=== PATIENT | female | born 2000 | race Two or more races ===

== ENCOUNTER 2025-01-24 15:16 | Observation (INO) | payer MEDICAID, SELFPAY ==
[2025-01-24] VITALS (34 sets, daily range): BP systolic 91–136; BP diastolic 51–59; PULSE 76–105; RESP 20–97; TEMP 36.6; O2SAT 92–100; BMI 25.2
--- NOTE | 2025-01-24 15:54 | XR_ITS ---
Examination: Complete OB ultrasound greater than 14 weeks Date and time of exam: January 24, 2025 at 1614 hrs. Indications: labor with abdominal and pelvic pain today Findings: Viable intrauterine single fetus with single amniotic sac presentation cephalic spine maternal right Cardiac motion 144 BPM Placenta maternal left. 2 Umbilical cord insertion 3 vessel seen Amniotic fluid index 9.4 cm Cervix 4.4 cm Ovaries obscured by bowel gas. Composite estimated gestational age based on BPD, head circumference, abdominal circumference, femur length is 32 weeks 0 days Estimated weight 1831 g. Survey of intracranial anatomy, spinal anatomy, abdominal anatomy, four-chamber heart performed with no abnormalities identified. Impression: Viable intrauterine gestation cephalic presentation.
[2025-01-24] MEDS: RINGERS LACTATED 1000 ML 1,000 ML 999 ML IV (16:10)
[2025-01-24 16:25] LABS: Basophils % (Auto) 0 % (0-2.5); Eosinophils % (Auto) 0 % (0-10); Hematocrit 27.9 % (36.0-46.0); Hemoglobin 9.5 g/dL (12.0-16.0); Immature Granulocytes % (Auto) 0 % (0-0); Immature Granulocytes Auto 0.03 Thou/mm3 (0.00-0.00); Lymphocytes # (Auto) 1.5 Thou/mm3 (1.0-4.8); Lymphocytes % (Auto) 22 % (10-50); Mean Corpuscular HGB Conc 34.1 g/dl (31.0-37.0); Mean Corpuscular Hemoglobin 28.5 pg (25.0-35.0); Mean Corpuscular Volume 84 fL (80-100); Monocytes # (Auto) 0.4 Thou/mm3 (0.0-0.8); Monocytes % (Auto) 6 % (0-12); Neutrophils # (Auto) 4.9 Thou/mm3 (1.8-7.7); Neutrophils % (Auto) 71 % (37-80); Nucleated Red Blood Cell % 0 /100 WBC (0); Platelet Count 214 Thou/mm3 (140-440); RDW Standard Deviation 41.8 fL (36.4-46.3); Red Blood Count 3.33 Miln/mm3 (4.00-5.20); White Blood Count 6.9 Thou/mm3 (3.6-11.0)
[2025-01-24 16:47] LABS: Alanine Aminotransferase 13 U/L (10-49); Albumin, Serum 3.7 gm/dL (3.5-5.0); Albumin/Globulin Ratio 1.5 (1.2-2.2); Alkaline Phosphatase 96 U/L (46-116); Anion Gap 7 (7-16); Aspartate Amino Transferase 15 U/L (0-34); BUN/Creatinine Ratio 12 Ratio (12-20); Bilirubin,Total 0.4 mg/dL (0.3-1.2); Blood Urea Nitrogen 7 mg/dL (9-23); Calcium 8.3 mg/dL (8.3-10.6); Calcium (Corrected) 8.5 mg/dL (8.5-10.1); Carbon Dioxide 23.7 mMol/L (20.0-31.0); Chloride 108 mMol/L (98-107); Creatinine (Component) 0.6 mg/dL (0.6-1.3); Estimated Creatinine Clearance 115.7 mL/min (>60); Globulin 2.5 gm/dL (2.3-3.5); Glucose 109 mg/dL (74-106); Osmolality,Calculated 276 (275-295); Potassium 3.4 mMol/L (3.4-5.1); Sodium 139 mMol/L (136-145); Total Protein 6.2 gm/dL (5.7-8.2); eGFR > 60 See Note
--- NOTE | 2025-01-24 17:53 | PC.NURSE ---
1749 discharge instructions reviewed, labor precautions, kick counts, copies given, instructed pt to take pnv, iron and f/u with primary ob, pt agrees/understands.
== END 2025-01-24 17:52 | disposition home or self-care (01) ==
PROVIDERS: Admitting Provider Obstetrics & Gynecology; Visit Provider Obstetrics & Gynecology
DX: O26.893 Other specified pregnancy related conditions, third trimester (principal); R25.2 Cramp and spasm; R51.9 Headache, unspecified; R06.02 Shortness of breath; R20.2 Paresthesia of skin; Z3A.32 32 weeks gestation of pregnancy
CPT/HCPCS: 36415; 59025; 59899; 76805; 80053; 85025; J7120

== ENCOUNTER 2025-02-18 13:31 | Observation (INO) | payer MEDICAID, SELFPAY ==
[2025-02-18] VITALS (48 sets, daily range): BP systolic 92–113; BP diastolic 50–72; PULSE 79–150; RESP 20–100; TEMP 36.4; O2SAT 89–100; BMI 24.0
--- NOTE | 2025-02-18 13:53 | XR_ITS ---
Examination: Complete OB ultrasound greater than 14 weeks Date and time of exam: February 18, 2025 1529 hours INDICATIONS: Right flank pain beginning 2 days ago Findings: Viable intrauterine single fetus with single amniotic sac presentation cephalic Cardiac motion 1:30 BPM Placenta maternal left grade 2 Umbilical cord insertion 3 vessel seen Amniotic fluid index 12.2 cm spine maternal left Cervix 3.3 cm Ovaries obscured by bowel gas. Composite estimated gestational age based on BPD, head circumference, abdominal circumference, femur length is 34 weeks 2 days Estimated weight 2020 72 g. Survey of intracranial anatomy, spinal anatomy, abdominal anatomy, four-chamber heart performed with no abnormalities identified. Impression: Viable intrauterine gestation cephalic presentation..
[2025-02-18] MEDS: RINGERS LACTATED 1000 ML 1,000 ML 999 ML IV (14:11)
[2025-02-18] MEDS: ONDANSETRON INJ 2 MG/ML INJ 2 ML 4 MG IV (14:11)
--- NOTE | 2025-02-18 14:13 | XR_ITS ---
Examination: Retroperitoneal ultrasound, complete Technique: Multiple high resolution grayscale images of the retroperitoneum obtained, including kidneys and bladder. Exam date and time:February 18, 2025 1443 hours INDICATIONS: Rectal pain beginning 2 days ago FINDINGS: Right kidney 10.0 cm cortex 2.3 cm Mild right hydronephrosis Left kidney 11.3 cm cortex 1.8 cm Contracted urinary bladder IMPRESSION: Mild right hydronephrosis No renal calculi
[2025-02-18 14:15] LABS: Collection Type, Urine Clean Catch
[2025-02-18 14:18] LABS: Basophils % (Auto) 0 % (0-2.5); Eosinophils % (Auto) 0 % (0-10); Hematocrit 31.4 % (36.0-46.0); Hemoglobin 10.8 g/dL (12.0-16.0); Immature Granulocytes % (Auto) 1 % (0-0); Immature Granulocytes Auto 0.04 Thou/mm3 (0.00-0.00); Lymphocytes # (Auto) 1.7 Thou/mm3 (1.0-4.8); Lymphocytes % (Auto) 21 % (10-50); Mean Corpuscular HGB Conc 34.4 g/dl (31.0-37.0); Mean Corpuscular Hemoglobin 27.8 pg (25.0-35.0); Mean Corpuscular Volume 81 fL (80-100); Monocytes # (Auto) 0.5 Thou/mm3 (0.0-0.8); Monocytes % (Auto) 6 % (0-12); Neutrophils % (Auto) 73 % (37-80); Nucleated Red Blood Cell % 0 /100 WBC (0); Platelet Count 241 Thou/mm3 (140-440); RDW Standard Deviation 43.1 fL (36.4-46.3); Red Blood Count 3.88 Miln/mm3 (4.00-5.20); White Blood Count 8.3 Thou/mm3 (3.6-11.0)
[2025-02-18] MEDS: RINGERS LACTATED 1000 ML 1,000 ML 100 ML IV (14:53)
[2025-02-18 15:08] LABS: Alanine Aminotransferase 30 U/L (10-49); Albumin, Serum 4.2 gm/dL (3.5-5.0); Albumin/Globulin Ratio 1.4 (1.2-2.2); Alkaline Phosphatase 169 U/L (46-116); Anion Gap 13 (7-16); Aspartate Amino Transferase 31 U/L (0-34); BUN/Creatinine Ratio 10 Ratio (12-20); Bilirubin,Total 0.9 mg/dL (0.3-1.2); Blood Urea Nitrogen 6 mg/dL (9-23); Calcium 8.8 mg/dL (8.3-10.6); Calcium (Corrected) 8.8 mg/dL (8.5-10.1); Chloride 106 mMol/L (98-107); Creatinine (Component) 0.6 mg/dL (0.6-1.3); Estimated Creatinine Clearance 113.2 mL/min (>60); Glucose 74 mg/dL (74-106); Osmolality,Calculated 262 (275-295); Sodium 133 mMol/L (136-145); Total Protein 7.2 gm/dL (5.7-8.2); eGFR > 60 See Note
[2025-02-18 15:29] LABS: Bacteria,Urine 3+; Bilirubin,Urine Negative (Negative); Blood,Urine Negative (Negative); Clarity,Urine Clear (Clear/Hazy); Color,Urine Yellow (Lt Yel-Yel); Glucose, Urine Negative (Negative); Granular Casts,Urine < 1 /hpf (0-1); Ketones,Urine 4+ (Negative); Leukocyte Esterase,Urine Negative (Negative); Nitrite,Urine Negative (Negative); PH,Urine 5.5 (5.0-7.0); Protein,Urine Trace (Neg - Trace); RBC,Urine 32 /hpf (0-3); Specific Gravity,Urine 1.019 (1.001-1.035); Squamous Epithelial Cell,Urine 46 /hpf (0-5); WBC,Urine 47 /hpf (0-5)
[2025-02-18 15:30] LABS: Carbon Dioxide 14.5 mMol/L (20.0-31.0)
[2025-02-18] MEDS: ceFAZolin/D5W 2 GM IV 2 GM/100 ML BAG IV (16:01)
== END 2025-02-18 17:05 | disposition home or self-care (01) ==
PROVIDERS: Admitting Provider Obstetrics & Gynecology; PCP Student in an Organized Health Care Education/Training Program; Visit Provider Obstetrics & Gynecology
DX: O21.2 Late vomiting of pregnancy (principal); O26.893 Other specified pregnancy related conditions, third trimester; R10.31 Right lower quadrant pain; R07.81 Pleurodynia; Z3A.35 35 weeks gestation of pregnancy
CPT/HCPCS: 36415; 59025; 59899; 76770; 76805; 80053; 81001; 85025; 87086; 96374; J0689; J2405; J7120

== ENCOUNTER 2025-03-12 19:15 | Observation (INO) | payer MEDICAID, SELFPAY ==
[2025-03-12] VITALS (15 sets, daily range): BP systolic 99–102; BP diastolic 63–64; PULSE 67–127; RESP 16–99; TEMP 37.1; O2SAT 98–100; BMI 24.7
[2025-03-12 20:19] LABS: ROM Kit Lot # 578010271
[2025-03-12 20:20] LABS: ROM Swab Mixed By: ANGUM; Rupture of Fetal Membranes Negative (Negative); Swb Mxed in Solvent 1 min? Yes
== END 2025-03-12 20:40 | disposition home or self-care (01) ==
PROVIDERS: Admitting Provider Obstetrics & Gynecology; Visit Provider Obstetrics & Gynecology
DX: Z34.83 Encounter for supervision of other normal pregnancy, third trimester (principal); Z3A.38 38 weeks gestation of pregnancy
CPT/HCPCS: 59025; 59899; 84112; G0378

== ENCOUNTER 2025-03-15 12:24 | Observation (INO) | payer MEDICAID, SELFPAY ==
[2025-03-15] VITALS (11 sets, daily range): BP systolic 104; BP diastolic 71; PULSE 76–104; RESP 18–98; TEMP 36.3; O2SAT 98–99; BMI 25.7
== END 2025-03-15 13:25 | disposition home or self-care (01) ==
PROVIDERS: Admitting Provider Obstetrics & Gynecology; PCP Physician Assistant Medical; Visit Provider Obstetrics & Gynecology
DX: Z34.83 Encounter for supervision of other normal pregnancy, third trimester (principal); Z3A.38 38 weeks gestation of pregnancy
CPT/HCPCS: 59025; 59899

== ENCOUNTER 2025-03-17 | Inpatient (IN) | payer MEDICAID, SELFPAY ==
[2025-03-17] VITALS (56 sets, daily range): BP systolic 90–127; BP diastolic 50–89; PULSE 62–111; RESP 16–99; TEMP 36.6–37; O2SAT 81–100; BMI 26.2
[2025-03-17 00:56] LABS: ROM Kit Lot # 57809069; ROM Swab Mixed By: GARRK1; Rupture of Fetal Membranes Positive (Negative); Swb Mxed in Solvent 1 min? Yes
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
[2025-03-17 03:45] LABS: Basophils % (Auto) 0 % (0-2.5); Eosinophils % (Auto) 0 % (0-10); Hematocrit 28.2 % (36.0-46.0); Hemoglobin 9.4 g/dL (12.0-16.0); Immature Granulocytes % (Auto) 0 % (0-0); Immature Granulocytes Auto 0.02 Thou/mm3 (0.00-0.00); Lymphocytes # (Auto) 2.3 Thou/mm3 (1.0-4.8); Lymphocytes % (Auto) 34 % (10-50); Mean Corpuscular HGB Conc 33.3 g/dl (31.0-37.0); Mean Corpuscular Hemoglobin 27.5 pg (25.0-35.0); Mean Corpuscular Volume 83 fL (80-100); Monocytes # (Auto) 0.5 Thou/mm3 (0.0-0.8); Monocytes % (Auto) 8 % (0-12); Neutrophils # (Auto) 3.9 Thou/mm3 (1.8-7.7); Neutrophils % (Auto) 58 % (37-80); Nucleated Red Blood Cell % 0 /100 WBC (0); Platelet Count 184 Thou/mm3 (140-440); RDW Standard Deviation 47.9 fL (36.4-46.3); Red Blood Count 3.42 Miln/mm3 (4.00-5.20); White Blood Count 6.7 Thou/mm3 (3.6-11.0)
[2025-03-17 04:23] LABS: Syphilis Nonreactive (Nonreactive)
[2025-03-17 05:55] LABS: Amphetamine/Metham Scrn,Ur OB Negative (Negative); Benzoylecgonine Screen, Ur OB Negative (Negative); Opiate Screen,Urine OB Negative (Negative); THC Screen,Urine OB Negative (Negative)
[2025-03-17] MEDS: MISOPROSTOL 50 mCg TABLET PO (06:24)
[2025-03-17] MEDS: RINGERS LACTATED 1000 ML 1,000 ML 100 ML IV (09:24)
[2025-03-17] MEDS: MINERAL OIL 30 ML UDC TOP (10:18)
[2025-03-17] MEDS: OXYTOCIN in NS 20 units 20 UNIT/1,000 ML BAG 125 UNIT IV (10:25)
[2025-03-17] MEDS: LIDOCAINE HCL 1% 20 ML VIAL INFL (10:25)
[2025-03-17] MEDS: BENZO/LANO/ALOE (Dermoplast) 60 GM CAN 1 SPRAY TOP (10:56)
[2025-03-17] MEDS: IBUPROFEN TAB 400 MG TABLET 800 MG PO ×2 (10:57→20:29)
--- NOTE | 2025-03-17 12:58 | PD.LDDELS ---
Data ([facility]) Data Hx Section: No : 4 Term: 1 : 0 Livin Abortions: Spontaneous & Theraputic: 2 Delivery Data ([facility]) Labor Data Initiation of labor: Spontaneous Induction/Augmentation Agent: Cytotec-PO ROM date: 03/16/25 ROM time: 22:00 Amniotic membrane rupture type: Spontaneous Amniotic fluid description: Clear Delivery Data EDC: 03/23/25 EDC calculated by:: LMP/early US confirmation Onset of labor date: 03/17/25 Onset of labor time: 09:38 Complete dilation date: 03/17/25 Complete dilation time: 10:08 delivery date: 03/17/25 delivery time: 10:21 Gestational age (weeks): 39 Gestational age (days): 1 Placenta delivery date: 03/17/25 Placenta delivery time: 10:36 Stage 1 total time: Labor - Stage 1 Duration 30 minutes Delivered by: geiling Delivery nurse: loki Uriostegui nurse: luc Delivery Representative at delivery: Yes (Danilo) Delivery Method Delivery method: Normal Vaginal Delivery Presentation: Vertex position: OA Anesthesia Type Anesthesia Type: Local and Spinal Placenta Placenta delivery description: Spontaneous Cord blood sent to lab: Yes cord blood collection: Cord Blood Type Episiotomy Episiotomy description: None Lacerations #1: Perineal: 2nd degree Vaginal: 1st degree Labial: periclitoral right Perineal repair Sutures used for repair: 3.0 Chromic EBL Estimated blood loss (ml): 200 Umbilical Cord cord description: 3 Vessels Complications Complications: None [employer] Data ([facility]) Data order: 1 [employer]'s gender: Female Identification band number: [id number] weight (gms): 7 lb 6.521 oz Weight (pounds): 7 lbs and 6.5 ozs 1 minute: 8 5 minutes: 9
--- NOTE | 2025-03-17 13:00 | ESDS_ITS ---
DS: Providers Provider Date of admission: 03/17/25 01:17 Primary care physician: Physician No Primary/Family Admitting Provider: Theresa Torres MD ([facility]) Attending Provider on Admission: Gage Perez MD Attending Provider on DC: Gage Perez MD Discharging Provider: Gage Perez MD DS: Diagnosis Problem List Completed Was Problem List Reviewed/Reconciled?: Yes Summary/Hosp Course Brief History: Patient is a 25-year-old -0-2-1 with all care uncomplicated with Dr Perez and on the chart who presented to triage reporting leaking amniotic fluid. She was 1 cm dilated. She is 39 and 1 sevenths weeks with an EDC of 03/23/2025. Group B strep is negative. She had a history of vaginal delivery in 2017 and did have an epidural. Peripartum Data Delivery Method: Normal Vaginal Delivery Episiotomy Description: None Time Spent with Patient Time attestation: Total time spent providing and/or coordinating discharge services: Exam Vital Signs Temp Pulse Resp BP Pulse Ox O2 Del Method 98.2 F 69 18 107/67 100 Room Air 03/17/25 10:35 03/17/25 12:49 03/17/25 10:35 03/17/25 12:49 03/17/25 10:28 03/17/25 10:35 Discharge Plan Plan Patient Disposition: HOME (Self Care) Patient condition on transfer: Stable Prescriptions/Referrals Prescriptions/Med Rec: New ibuprofen 600 mg tablet 600 mg PO Q6H PRN (Reason: pain) Qty: 30 0RF Continued PNV cmb#95-ferrous fumarate-FA [] 28 mg iron- 800 mcg tablet PO ferrous sulfate 325 mg (65 mg iron) tablet 325 mg PO QDAY Patient Comments: TAKE 1 TABLET BY MOUTH EVERY OTHER DAY Discontinued Vitamin Tablet 1 tab PO QDAY Referrals: No Primary/Family,Physician [Primary Care Provider] - Patient/Caregiver Discharge Instructions Discharge Activity: activity as tolerated Other Discharge Activity Instructions:: Follow up office 6 weeks. Education Materials: After a Vaginal , Breast Care After , : Caring for Yourself Print Language: Montserratian Stand Alone Forms: Tatianna Award Info., Patient Portal Info Letter Discharge Order Discharge Orders: Discharge (Routine); Ordered 03/18/25 Ordered By: Patrick Gaston Planned Discharge Date 03/18/25
[2025-03-17 17:34] LABS: Basophils % (Auto) 0 % (0-2.5); Eosinophils % (Auto) 0 % (0-10); Hematocrit 27.2 % (36.0-46.0); Hemoglobin 8.9 g/dL (12.0-16.0); Immature Granulocytes % (Auto) 0 % (0-0); Immature Granulocytes Auto 0.03 Thou/mm3 (0.00-0.00); Lymphocytes # (Auto) 1.7 Thou/mm3 (1.0-4.8); Lymphocytes % (Auto) 16 % (10-50); Mean Corpuscular HGB Conc 32.7 g/dl (31.0-37.0); Mean Corpuscular Hemoglobin 27.1 pg (25.0-35.0); Mean Corpuscular Volume 83 fL (80-100); Monocytes # (Auto) 0.8 Thou/mm3 (0.0-0.8); Monocytes % (Auto) 7 % (0-12); Neutrophils # (Auto) 8.2 Thou/mm3 (1.8-7.7); Neutrophils % (Auto) 77 % (37-80); Nucleated Red Blood Cell % 0 /100 WBC (0); Platelet Count 169 Thou/mm3 (140-440); RDW Standard Deviation 47.2 fL (36.4-46.3); Red Blood Count 3.28 Miln/mm3 (4.00-5.20); White Blood Count 10.7 Thou/mm3 (3.6-11.0)
[2025-03-18] VITALS: BP 116/77; PULSE 61; RESP 18; TEMP 36.7; O2SAT 97
[2025-03-18 04:00] VITALS: BP 98/54; PULSE 79; RESP 18; TEMP 36.8; O2SAT 97
[2025-03-18] MEDS: HYDROcodone/APAP 5/325 TABLET 1 TAB PO (07:58)
[2025-03-18] MEDS: IBUPROFEN TAB 400 MG TABLET 800 MG PO (07:58)
[2025-03-18 08:00] VITALS: BP 109/69; PULSE 78; RESP 16; TEMP 37.1; O2SAT 99
--- NOTE | 2025-03-18 10:56 | ESPR_ITS ---
Subjective Subjective Interval history: Delivery type: Patient doing well this morning. No acute complaints. Ambulating, tolerating p.o. and voiding without difficulty. HTN/Pre-Eclampsia screen: No chest pain, shortness of breath, headache, visual changes, epigastric or right upper quadrant pain. Breast-feeding, lochia diminishing. Bowel: Flatus+/ BM+ Exam Vital Signs Temp Pulse Resp BP Pulse Ox O2 Del Method 98.7 F 78 18 109/69 99 Room Air 03/18/25 08:00 03/18/25 08:00 03/18/25 04:00 03/18/25 08:00 03/18/25 08:00 03/18/25 08:00 Constitutional Constitutional: no acute distress Routine HEENT Exam Head: Present normocephalic and atraumatic Eye: Present EOMI and PERRL ENT: Present mucous membranes moist Routine Neck Exam Neck: Present supple and trachea midline Routine Respiratory Exam Respiratory: Present chest non-tender, lungs clear, normal breath sounds and no resp distress Routine Cardiovascular Exam Cardiovascular: Present RRR Routine Abdominal Exam Abdominal: Present soft and normoactive bowel sounds Routine Extremities Exam Extremities: Present full ROM Routine Skin Exam Skin: Present intact, dry and warm Routine Neurological Exam Neurological: Present alert, oriented X3 and CN II-XII intact Routine Psychiatric Exam Psychiatric: Present normal affect and normal thought process Objective Labs 03/17/25 17:00 Labs: Laboratory Results - last 24 hr 03/17/25 17:00 WBC 10.7 D RBC 3.28 L Hgb 8.9 L Hct 27.2 L MCV 83 MCH 27.1 MCHC 32.7 RDW Std Deviation 47.2 H Plt Count 169 Neut % (Auto) 77 Lymph % (Auto) 16 Sebastian % (Auto) 7 Eos % (Auto) 0 Baso % (Auto) 0 Neut # (Auto) 8.2 H Lymph # (Auto) 1.7 Sebastian # (Auto) 0.8 Eos # (Auto) 0.0 Baso # (Auto) 0.0 Immature Gran # (Auto) 0.03 H Absolute Nucleated RBC 0.00 Immature Gran % 0 Nucleated RBC % 0 Assessment & Plan Problem List (1) Supervision of high risk in third trimester: Status: Acute (2) Vaginal delivery: Status: Acute Assessment and plan: 1. Continue routine /post-op care 2. Labs reviewed, cbc appropriate 3. Remove dressing/Caceres 4. Encourage to ambulate, shower 5. Encourage PO intake, breast feeding Time Spent With Patient Time: Total time spent is greater than 50% in coordination of care (as documented) at patient's floor/unit and/or counseling patient:
--- NOTE | 2025-03-18 10:57 | ESDS_ITS ---
DS: Providers Provider Date of admission: 03/17/25 01:17 Primary care physician: Physician No Primary/Family Admitting Provider: Theresa Torres MD ([facility]) Attending Provider on Admission: Patrick Gaston MD Consults: 03/17/25 15:57 Referral Routine Comment: Attending Provider on DC: Patrick Gaston MD Discharging Provider: Patrick Gaston MD DS: Diagnosis Discharge Diagnosis (1) Vaginal delivery: Status: Acute (2) Supervision of high risk in third trimester: Status: Acute Problem List Completed Was Problem List Reviewed/Reconciled?: Yes Summary/Hosp Course Brief History: Patient is a 25-year-old -0-2-1 with all care uncomplicated with Dr Perez and on the chart who presented to triage reporting leaking amniotic fluid. She was 1 cm dilated. She is 39 and 1 sevenths weeks with an EDC of 03/23/2025. Group B strep is negative. She had a history of vaginal delivery in 2017 and did have an epidural. Peripartum Data Delivery Method: Normal Vaginal Delivery Episiotomy Description: None Time Spent with Patient Time attestation: Total time spent providing and/or coordinating discharge services: Exam Vital Signs Temp Pulse Resp BP Pulse Ox O2 Del Method 98.7 F 78 18 109/69 99 Room Air 03/18/25 08:00 03/18/25 08:00 03/18/25 04:00 03/18/25 08:00 03/18/25 08:00 03/18/25 08:00 Discharge Plan Plan Patient Disposition: HOME (Self Care) Patient condition on transfer: Stable Prescriptions/Referrals Prescriptions/Med Rec: New ibuprofen 600 mg tablet 600 mg PO Q6H PRN (Reason: pain) Qty: 30 0RF Continued PNV cmb#95-ferrous fumarate-FA [] 28 mg iron- 800 mcg tablet PO ferrous sulfate 325 mg (65 mg iron) tablet 325 mg PO QDAY Patient Comments: TAKE 1 TABLET BY MOUTH EVERY OTHER DAY Discontinued Vitamin Tablet 1 tab PO QDAY Referrals: No Primary/Family,Physician [Primary Care Provider] - Patient/Caregiver Discharge Instructions Discharge Activity: activity as tolerated Other Discharge Activity Instructions:: Follow up office 6 weeks. Print Language: Albanian Stand Alone Forms: Tatianna Award Info., Patient Portal Info Letter Discharge Order Discharge Orders: Discharge (Routine); Ordered 03/18/25 Ordered By: Patrick Gaston Planned Discharge Date 03/18/25
[2025-03-18 12:27] VITALS: BP 108/69; PULSE 71; RESP 18; TEMP 36.7; O2SAT 98
[2025-03-18] MEDS: ACETAMINOPHEN 325 MG TABLET 650 MG PO (12:32)
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
== END 2025-03-18 14:35 | disposition home or self-care (01) | DRG 560 ==
LOC: S4SX 13:00 → S4NX 14:44
PROVIDERS: Specialist; Admitting Provider Obstetrics & Gynecology; Visit Provider Obstetrics & Gynecology
DX: O42.92 Full-term premature rupture of membranes, unspecified as to length of time between rupture and onset of labor (principal); Z37.0 Single live birth; Z3A.39 39 weeks gestation of pregnancy; O70.1 Second degree perineal laceration during delivery
CPT/HCPCS: 36415; 59025; 59409; 80307; 84112; 85025; 86780; 86850; 86900; 86901; 94762; J2590; J2795; J3010; J3490; J7120; A9270